=== PATIENT | male | born 1940 | race Hispanic/Latino ===

== ENCOUNTER 2024-08-12 10:50 | Emergency (ER) | payer MEDICARE ==
[2024-08-12 11:13] VITALS: PULSE 84; RESP 17; TEMP 98.1; O2SAT 99
[2024-08-12 12:03] LABS: BASOPHILS % 0.5 % (0.0-1.0); EOSINOPHILS # (AUTO) 0.5 (0.0-0.4); EOSINOPHILS % 8.5 % (0.0-6.0); HEMATOCRIT 23.7 % (38.2-49.6); LYMPHOCYTES # (AUTO) 1.1 (1.0-3.2); LYMPHOCYTES % 19.8 % (18.0-39.1); MEAN CORPUSCULAR HEMOGLOBIN 31.6 pg (28-32); MEAN CORPUSCULAR HGB CONC 33.8 g/dL (31-35); MEAN CORPUSCULAR VOLUME 93.7 fL (81-99); MONOCYTES # (AUTO) 0.4 (0.2-0.8); MONOCYTES % 7.3 % (4.4-11.3); NEUTROPHILS # (AUTO) 3.6 (2.1-6.9); NEUTROPHILS % 63.4 % (38.7-80.0); PLATELET COUNT 322 x10e3/uL (140-360); RED BLOOD COUNT 2.53 x10e6/uL (4.3-5.7); RED CELL DISTRIBUTION WIDTH 12.8 % (11.7-14.4); WHITE BLOOD COUNT 5.65 x10e3/uL (4.8-10.8)
[2024-08-12] MEDS ORDERED: BENZONATATE100 MG PO (12:33)
== END 2024-08-12 13:55 | disposition home or self-care (01) ==
LOC: ER 10:59
DX: R31.9 Hematuria, unspecified (principal); I10 Essential (primary) hypertension; E11.9 Type 2 diabetes mellitus without complications; E78.5 Hyperlipidemia, unspecified; Z85.46 Personal history of malignant neoplasm of prostate
CPT/HCPCS: 36415; 85025; 99283

== ENCOUNTER 2024-10-30 23:09 | Emergency (ER) | payer MEDICARE ==
[~2024-10-30] VITALS: Ht 165.1 cm; Wt 54.4 kg
[~2024-10-30 23:09] MED LIST: BENZONATATE100 MG PO; CEFDINIR300 MG PO; ONDANSETRON ODT4 MG SL
[2024-10-30 23:20] VITALS: PULSE 102; RESP 20; TEMP 98.4
[2024-10-30 23:59] VITALS: BP 121/66; PULSE 97; RESP 16; TEMP 98.4; O2SAT 99
== END 2024-10-31 00:02 | disposition home or self-care (01) ==
LOC: ER 23:13
DX: Z46.6 Encounter for fitting and adjustment of urinary device (principal); I10 Essential (primary) hypertension; E11.9 Type 2 diabetes mellitus without complications; E78.5 Hyperlipidemia, unspecified; Z85.46 Personal history of malignant neoplasm of prostate
CPT/HCPCS: 51700; 99283

== ENCOUNTER 2024-11-05 14:27 | Emergency (ER) | payer MEDICARE ==
[~2024-11-05] VITALS: Ht 165.1 cm; Wt 54.4 kg
[2024-11-05 14:30] VITALS: PULSE 98; RESP 18; TEMP 98.6
[2024-11-05 15:55] VITALS: BP 119/84; PULSE 70; RESP 18; TEMP 98; O2SAT 98
== END 2024-11-05 15:59 | disposition home or self-care (01) ==
LOC: ER 14:50
DX: T83.091A Other mechanical complication of indwelling urethral catheter, initial encounter (principal); N39.0 Urinary tract infection, site not specified; I10 Essential (primary) hypertension; E11.9 Type 2 diabetes mellitus without complications; E78.5 Hyperlipidemia, unspecified; Z85.46 Personal history of malignant neoplasm of prostate
CPT/HCPCS: 87086; 87186; 99283

== ENCOUNTER → 2024-11-16 | Day surgery (SDC) | payer MEDICARE ==
[2024-11-14 16:26] LABS: BASOPHILS % 0.5 % (0.0-1.0); EOSINOPHILS % 8.1 % (0.0-6.0); LYMPHOCYTES % 16.6 % (18.0-39.1); MONOCYTES % 7.4 % (4.4-11.3); NEUTROPHILS % 66.9 % (38.7-80.0); RED CELL DISTRIBUTION WIDTH 14.3 % (11.7-14.4)
[2024-11-14 16:48] LABS: EST GLOMERULAR FILTRATION RATE 60.0 ML/MIN (>=60)
[~2024-11-16] MED LIST changes: +AMIODARONE HCL100 MG PO; +ERLEADA60 MG PO; +FENTANYL CITRATE/PF 100MCG/2 ML INJ ONE; +FEROSUL325 MG PO; +FINASTERIDE5 MG PO; +FLOMAX0.4 MG PO; +LIDOCAINE HCL 2% LOCAL INJ 5 ML SDV VIAL INJ ONE; +LIPITOR20 MG PO; +METFORMIN HCL500 MG PO; +METHENAMINE HIPP1 GM PO; +METOPROLOL SUCC25 MG PO; +MIDODRINE HCL5 MG PO; +ONDANSETRON HCL INJ 2MG/ML 2ML 2 MG/ML VIAL ONE; +PANTOPRAZOLE SO40 MG PO; +PHENYLEPHRINE HCL 1% 10 MG/ML VIAL ONE; +PRESERVISION A1 EAC3; +PROPOFOL IV EMULSION 10 MG/ML 20 ML VIAL ONE; +SODIUM CHLORIDE 0.9% 100 ML ONE; +TOLTERODINE TART4 MG PO; +TRADJENTA5 MG PO; +VITAMIN C500 MG PO
[2024-11-16] MEDS: PIPERACILLIN/TAZOBACTAM 3.375 GM VIAL ONE (05:58)
[2024-11-16] MEDS: GENTAMICIN 80MG/NS 100 ML 200 ML IV ONE (05:58)
[2024-11-16] MEDS: SODIUM CHLORIDE 0.9% 1000ML 1,000 ML ONE (05:58)
[2024-11-16 09:05] VITALS: BP 123/72; PULSE 85; RESP 18; O2SAT 97
== END | disposition home or self-care (01) ==
LOC: OR 05:22
PROVIDERS: ATTEND Urology
DX: R33.8 Other retention of urine (principal); C61 Malignant neoplasm of prostate; N39.0 Urinary tract infection, site not specified; N13.70 Vesicoureteral-reflux, unspecified; N13.30 Unspecified hydronephrosis; N40.0 Benign prostatic hyperplasia without lower urinary tract symptoms; N32.89 Other specified disorders of bladder; D64.9 Anemia, unspecified; E11.9 Type 2 diabetes mellitus without complications; I10 Essential (primary) hypertension; E78.5 Hyperlipidemia, unspecified; M06.9 Rheumatoid arthritis, unspecified; M19.90 Unspecified osteoarthritis, unspecified site; Z01.812 Encounter for preprocedural laboratory examination; Z01.818 Encounter for other preprocedural examination; Z79.890 Hormone replacement therapy; Z79.84 Long term (current) use of oral hypoglycemic drugs; Z79.899 Other long term (current) drug therapy; Z87.891 Personal history of nicotine dependence; Z92.3 Personal history of irradiation
CPT/HCPCS: 36415 ×2; 51040; 52005; 71046; 74420; 80048; 82948; 85025; 87086; 87186; C1758; J1580; J2003; J2371; J2405; J2543; J2704; J3010; J7030; J7050

== ENCOUNTER 2024-11-25 21:30 | Inpatient (IN) | payer MEDICARE ==
[~2024-11-25] VITALS: Ht 165.1 cm; Wt 60.8 kg
[~2024-11-25 21:30] MED LIST changes: -FENTANYL CITRATE/PF 100MCG/2 ML INJ ONE; -LIDOCAINE HCL 2% LOCAL INJ 5 ML SDV VIAL INJ ONE; -MIDODRINE HCL5 MG PO; -ONDANSETRON HCL INJ 2MG/ML 2ML 2 MG/ML VIAL ONE; -PHENYLEPHRINE HCL 1% 10 MG/ML VIAL ONE; -PROPOFOL IV EMULSION 10 MG/ML 20 ML VIAL ONE; -SODIUM CHLORIDE 0.9% 100 ML ONE
[2024-11-25 21:55] VITALS: TEMP 98.2
[2024-11-25 22:40] LABS: BASOPHILS % 0.7 % (0.0-1.0); EOSINOPHILS % 5.8 % (0.0-6.0); LYMPHOCYTES % 38.1 % (18.0-39.1); MONOCYTES % 5.9 % (4.4-11.3); NEUTROPHILS % 48.9 % (38.7-80.0); RED CELL DISTRIBUTION WIDTH 14.9 % (11.7-14.4)
[2024-11-25 22:54] LABS: EST GLOMERULAR FILTRATION RATE 55.0 ML/MIN (>=60)
[2024-11-25 22:55] LABS: INR 0.97
[2024-11-25] MEDS: SODIUM CHLORIDE 0.9% 1000ML 1,000 ML IV STA ×3 (23:33→23:34)
[2024-11-25] MEDS: ACETAMINOPHEN 325 MG TAB PO STA (23:34)
[2024-11-26] VITALS (7 sets, daily range): BP systolic 103–143; BP diastolic 52–71; PULSE 91–122; RESP 17–22; TEMP 97.4–98.9; O2SAT 97–100
[2024-11-26] MEDS ORDERED: IOPAMIDOL 370 MG/ML 100 ML INFUS..BTL INJ ONE (00:51)
[2024-11-26] MEDS ORDERED: ONDANSETRON HCL INJ 2MG/ML 2ML 2 MG/ML VIAL IV PRN (01:30)
[2024-11-26] MEDS ORDERED: LIDOCAINE JELLY 2% 10ML URO-JET ONE (03:02)
[2024-11-26] MEDS: LIDOCAINE JELLY 2% 10ML URO-JET TOP ONE (03:33)
[2024-11-26] MEDS: SODIUM CHLORIDE 0.9% 1000ML 2,000 ML IV STA (04:12)
[2024-11-26] MEDS: SODIUM CHLORIDE 0.9% 1000ML 1,000 ML IV SCH (08:34)
[2024-11-26] MEDS ORDERED: ACETAMINOPHEN 325 MG TAB PO STA (09:46)
[2024-11-26] MEDS ORDERED: DEXAMETHASONE SOD PHOS 10 MG/1 ML VIAL IV ONE (10:00)
[2024-11-26] MEDS ORDERED: DEXTROSE 50% SYRINGE 50 ML IV PRN (10:00)
[2024-11-26] MEDS ORDERED: SODIUM CHLORIDE 0.9% 250ML 250 ML IV ONE (10:00)
[2024-11-26] MEDS: INSULIN LISPRO 100 UNIT/1 ML 3ML VIAL SQ SCH (11:30)
[2024-11-26] MEDS: Morphine 4mg INJECTION 4 MG/ML INJ IV PRN (13:35)
[2024-11-26 17:11] LABS: LEUKOCYTE ESTERASE ,URINE LARGE (NEGATIVE); PROTEIN,URINE DIPSTICK >=300 (NEGATIVE); URINE UROBILINOGEN 1 mg/dL (0.2 - 1)
[2024-11-26] MEDS: DEXAMETHASONE SOD PHOS 10 MG/1 ML VIAL IV ONE (18:01)
[2024-11-26] MEDS: ACETAMINOPHEN 325 MG TAB PO ONE (18:01)
[2024-11-26] MEDS: SODIUM CHLORIDE 0.9% 250ML 250 ML IV ONE (18:01)
[2024-11-26] MEDS: PANTOPRAZOLE SOD 40 MG TABEC PO SCH (18:01)
[2024-11-26] MEDS ORDERED: MIDODRINE HCL5 MG PO (19:49)
[2024-11-27] VITALS (34 sets, daily range): BP systolic 75–159; BP diastolic 49–113; PULSE 89–122; RESP 9–22; TEMP 97.4–98.8; O2SAT 95–100
[2024-11-27] MEDS: FUROSEMIDE INJ 10 MG/ML 2 ML VIAL IV PRN (03:31)
[2024-11-27 08:21] LABS: BASOPHILS % 0.3 % (0.0-1.0); EOSINOPHILS % 0.2 % (0.0-6.0); LYMPHOCYTES % 14.2 % (18.0-39.1); MONOCYTES % 6.8 % (4.4-11.3); NEUTROPHILS % 76.8 % (38.7-80.0); RED CELL DISTRIBUTION WIDTH 16.2 % (11.7-14.4)
[2024-11-27 08:56] LABS: EST GLOMERULAR FILTRATION RATE 25.0 ML/MIN (>=60)
[2024-11-27] MEDS ORDERED: METOPROLOL SUCCINATE 25 MG TAB XL PO SCH (09:00)
[2024-11-27] MEDS: TAMSULOSIN HCL 0.4 MG CAP PO SCH (09:39)
[2024-11-27] MEDS: FINASTERIDE 5 MG TAB PO SCH (09:39)
[2024-11-27] MEDS: AMIODARONE HCL 200 MG TAB PO SCH (09:41)
[2024-11-27] MEDS: METOPROLOL SUCCINATE 25 MG TAB XL PO SCH (09:41)
[2024-11-27] MEDS: TOLTERODINE TARTRATE 4 MG CAPCR PO SCH (11:13)
[2024-11-27] MEDS: SODIUM CHLORIDE 0.9% 250ML 250 ML IV ONE (18:09)
[2024-11-27] MEDS: MUPIROCIN 2% OINT 22 GM TUBE TOP SCH (18:50)
[2024-11-27 18:53] LABS: INR 1.3
[2024-11-27] MEDS ORDERED: MIDODRINE HCL 5 MG TABLET PO PRN (19:15)
[2024-11-28] VITALS (75 sets, daily range): BP systolic 84–138; BP diastolic 41–99; PULSE 76–106; RESP 10–23; TEMP 96.6–98.5; O2SAT 86–100
[2024-11-28 06:43] LABS: BASOPHILS % 0.4 % (0.0-1.0); EOSINOPHILS % 0.2 % (0.0-6.0); LYMPHOCYTES % 7.2 % (18.0-39.1); MONOCYTES % 6.6 % (4.4-11.3); NEUTROPHILS % 84.5 % (38.7-80.0); RED CELL DISTRIBUTION WIDTH 15.3 % (11.7-14.4)
[2024-11-28 07:09] LABS: EST GLOMERULAR FILTRATION RATE 17.0 ML/MIN (>=60)
[2024-11-28 07:24] LABS: PHOSPHORUS 5.3 MG/DL (2.3-4.7)
[2024-11-28 08:04] LABS: BAND NEUTROPHILS % (MANUAL) 1 %; LYMPHOCYTES % (MANUAL) 6 % (19-48); MONOCYTES % (MANUAL) 5 % (3.4-9.0); NEUTROPHILS % (MANUAL) 88 % (40-74); PLATELET ESTIMATE SLIGHTLY DECREASED; PLATELET MORPHOLOGY COMMENT NORMAL
[2024-11-28] MEDS: SODIUM CHLORIDE 0.9% 250ML 250 ML IV ONE ×2 (08:40→20:09)
[2024-11-28] MEDS: SODIUM BICARBONATE 8.4% SYRING 50 ML in SODIUM CHLORIDE 0.45% 1,000 ML IV ONE (08:41)
[2024-11-28] MEDS: HEPARIN SOD/SOD CHLORIDE 1,000 ML ONE (19:26)
[2024-11-28] MEDS: LIDOCAINE HCL 2% LOCAL 20 ML VIAL ONE (19:26)
[2024-11-28] MEDS: IOPAMIDOL 370 MG/ML 100 ML INFUS..BTL INJ ONE (19:27)
[2024-11-28] MEDS: SODIUM CHLORIDE 0.9% 250ML 250 ML ONE (19:27)
[2024-11-29] VITALS (50 sets, daily range): BP systolic 96–128; BP diastolic 50–80; PULSE 35–100; RESP 10–20; TEMP 97.7–98.4; O2SAT 100
[2024-11-29 06:18] LABS: BASOPHILS % 0.2 % (0.0-1.0); EOSINOPHILS % 0.2 % (0.0-6.0); LYMPHOCYTES % 6.3 % (18.0-39.1); MONOCYTES % 6.0 % (4.4-11.3); NEUTROPHILS % 86.0 % (38.7-80.0); RED CELL DISTRIBUTION WIDTH 16.3 % (11.7-14.4)
[2024-11-29 08:29] LABS: EST GLOMERULAR FILTRATION RATE 16.0 ML/MIN (>=60)
[2024-11-29] MEDS: CALCIUM GLUC 1 G/50 ML NACL 50 ML IV SCH ×2 (11:37→18:00)
[2024-11-29] MEDS ORDERED: CALCIUM GLUCONATE 10% INJ 9.3 MEQ in SODIUM CHLORIDE 0.9% 100 ML IV ONE (16:45)
[2024-11-29] MEDS: SODIUM BICARBONATE 650 MG TAB PO SCH (18:38)
[2024-11-29] MEDS: CALCIUM CARBONATE 500 MG CHEWABLE TABS PO SCH (18:38)
[2024-11-29] MEDS: SODIUM BICARBONATE 8.4% INJ 50 ML SYR IV STA (18:49)
[2024-11-29] MEDS: SODIUM BICARBONATE 8.4% SYRING 50 ML ONE (18:52)
[2024-11-30] VITALS (24 sets, daily range): BP systolic 97–127; BP diastolic 53–71; PULSE 85–110; RESP 11–17; TEMP 97.8–99.2; O2SAT 100
[2024-11-30] MEDS: SODIUM BICARBONATE 8.4% SYRING 150 ML in DEXTROSE 5% 1,000 ML IV SCH (01:33)
[2024-11-30 05:46] LABS: EST GLOMERULAR FILTRATION RATE 16.0 ML/MIN (>=60)
[2024-11-30 06:33] LABS: ABG BASE EXCESS -22.0 mmol/L (-2 - 3); ABG HCO3 7 mmol/L (22-26); ABG OXYGEN SATURATION 87.0 % (95-98); ABG PCO2 22 mmHg (35-45); ABG PH 7.14 (7.35-7.45); ABG PO2 67 mmHg (80-105); ABG TCO2 8
[2024-11-30] MEDS: CALCIUM GLUCONATE 10% INJ 9.3 MEQ in SODIUM CHLORIDE 0.9% 100 ML IV ONE (09:19)
[2024-11-30 14:48] LABS: ABG BASE EXCESS -8.0 mmol/L (-2 - 3); ABG HCO3 17 mmol/L (22-26); ABG OXYGEN SATURATION 88.0 % (95-98); ABG PCO2 30 mmHg (35-45); ABG PH 7.37 (7.35-7.45); ABG PO2 56 mmHg (80-105); ABG TCO2 18
[2024-11-30] MEDS: SODIUM BICARBONATE 8.4% VIAL 150 ML in DEXTROSE 5% 1,000 ML IV SCH (16:15)
[2024-11-30 22:09] LABS: EST GLOMERULAR FILTRATION RATE 21.0 ML/MIN (>=60)
[2024-11-30 22:23] LABS: BASOPHILS % 0.2 % (0.0-1.0); EOSINOPHILS % 3.2 % (0.0-6.0); LYMPHOCYTES % 6.4 % (18.0-39.1); MONOCYTES % 6.3 % (4.4-11.3); NEUTROPHILS % 82.8 % (38.7-80.0); RED CELL DISTRIBUTION WIDTH 16.4 % (11.7-14.4)
[2024-12-01] VITALS (19 sets, daily range): BP systolic 89–120; BP diastolic 50–72; PULSE 79–99; RESP 9–15; TEMP 98.3–100.1; O2SAT 95–100
[2024-12-01 05:27] LABS: BASOPHILS % 0.4 % (0.0-1.0); EOSINOPHILS % 2.4 % (0.0-6.0); LYMPHOCYTES % 6.3 % (18.0-39.1); MONOCYTES % 7.6 % (4.4-11.3); NEUTROPHILS % 82.5 % (38.7-80.0); RED CELL DISTRIBUTION WIDTH 16.1 % (11.7-14.4)
[2024-12-01 06:01] LABS: EST GLOMERULAR FILTRATION RATE 24.0 ML/MIN (>=60)
[2024-12-01 06:18] LABS: CALCIUM IONIZED 0.8 mmol/L (1.09-1.30)
[2024-12-01 06:18] LABS: ABG BASE EXCESS 5.0 mmol/L (-2 - 3); ABG HCO3 29 mmol/L (22-26); ABG OXYGEN SATURATION 98.0 % (95-98); ABG PCO2 38 mmHg (35-45); ABG PH 7.48 (7.35-7.45); ABG PO2 94 mmHg (80-105); ABG TCO2 30
[2024-12-01 06:46] LABS: PHOSPHORUS 3.4 MG/DL (2.3-4.7)
[2024-12-01] MEDS: LACTATED RINGER'S 1,000 ML INJ SCH (09:08)
[2024-12-01] MEDS: CALCIUM GLUC 1 G/50 ML NACL 50 ML IV SCH (16:17)
[2024-12-01] MEDS ORDERED: CALCIUM CARBONATE 500 MG CHEWABLE TABS PO SCH (17:00)
[2024-12-02] VITALS (7 sets, daily range): BP systolic 105–133; BP diastolic 50–74; PULSE 85–93; RESP 12–18; TEMP 98.1–99.6; O2SAT 94–100
[2024-12-03] VITALS (8 sets, daily range): BP systolic 103–139; BP diastolic 54–73; PULSE 81–111; RESP 16–19; TEMP 97.5–99; O2SAT 95–100
[2024-12-03] MEDS: B&O 60MG R/S 60 MG SUPP PR PRN (01:52)
[2024-12-03 05:52] LABS: BASOPHILS % 0.3 % (0.0-1.0); EOSINOPHILS % 6.1 % (0.0-6.0); LYMPHOCYTES % 9.3 % (18.0-39.1); MONOCYTES % 12.1 % (4.4-11.3); NEUTROPHILS % 71.8 % (38.7-80.0); RED CELL DISTRIBUTION WIDTH 16.4 % (11.7-14.4)
[2024-12-03 06:07] LABS: EST GLOMERULAR FILTRATION RATE 43.0 ML/MIN (>=60)
[2024-12-03 20:00] LABS: BASOPHILS % 0.3 % (0.0-1.0); EOSINOPHILS % 7.0 % (0.0-6.0); LYMPHOCYTES % 11.6 % (18.0-39.1); MONOCYTES % 15.0 % (4.4-11.3); NEUTROPHILS % 65.5 % (38.7-80.0); RED CELL DISTRIBUTION WIDTH 16.3 % (11.7-14.4)
[2024-12-04] VITALS (16 sets, daily range): BP systolic 55–121; BP diastolic 37–88; PULSE 101–113; RESP 10–39; TEMP 100.2; O2SAT 73–100
[2024-12-04] MEDS: SODIUM CHLORIDE 0.9% 1000ML 0 ML ONE (00:29)
[2024-12-04] MEDS: SODIUM CHLORIDE 0.9% 250ML 250 ML IV ONE (02:08)
[2024-12-04] MEDS: SODIUM CHLORIDE 0.9% 250ML 250 ML ONE (02:09)
[2024-12-04] MEDS: NOREPINEPHRINE 8 MG/D5W 250 ML 250 ML IV SCH (02:10)
[2024-12-04] MEDS: NOREPINEPHRINE 8 MG/D5W 250 ML 250 ML ONE (02:40)
[2024-12-04] MEDS ORDERED: MUPIROCIN 2% OINT 22 GM TUBE TOP SCH (09:00)
== END 2024-12-04 03:15 | disposition expired | DRG 698 ==
LOC: ER 21:39 → ERHOLD 11-26 02:12 → MED/SURG 11-26 06:18 → ICU 11-27 16:29 → MED/SURG2 12-01 17:35 → ICU 12-03 23:56
PROVIDERS: ADMIT Internal Medicine; ATTEND Internal Medicine
PROC: 30233N1 Transfusion of Nonautologous Red Blood Cells into Peripheral Vein, Percutaneous Approach (ICD-10-PCS; 2024-11-26)
PROC: 3E0333Z Introduction of Anti-inflammatory into Peripheral Vein, Percutaneous Approach (ICD-10-PCS; 2024-11-26)
PROC: 30233K1 Transfusion of Nonautologous Frozen Plasma into Peripheral Vein, Percutaneous Approach (ICD-10-PCS; 2024-11-27)
PROC: 02HV33Z Insertion of Infusion Device into Superior Vena Cava, Percutaneous Approach (ICD-10-PCS; 2024-11-27)
PROC: 4A133R1 Monitoring of Arterial Saturation, Peripheral, Percutaneous Approach (ICD-10-PCS; principal; 2024-11-29)
PROC: 5A2204Z Restoration of Cardiac Rhythm, Single (ICD-10-PCS; 2024-12-04)
DX: T83.518A Infection and inflammatory reaction due to other urinary catheter, initial encounter (principal); A41.9 Sepsis, unspecified organism; N17.0 Acute kidney failure with tubular necrosis; R65.21 Severe sepsis with septic shock; C79.51 Secondary malignant neoplasm of bone; R64 Cachexia; E87.20 Acidosis, unspecified; E44.0 Moderate protein-calorie malnutrition; D68.9 Coagulation defect, unspecified; D62 Acute posthemorrhagic anemia; N13.6 Pyonephrosis; R57.8 Other shock; R62.7 Adult failure to thrive; K76.89 Other specified diseases of liver; C61 Malignant neoplasm of prostate; I12.9 Hypertensive chronic kidney disease with stage 1 through stage 4 chronic kidney disease, or unspecified chronic kidney disease; N32.81 Overactive bladder; T83.091A Other mechanical complication of indwelling urethral catheter, initial encounter; R31.0 Gross hematuria; N39.41 Urge incontinence; N18.9 Chronic kidney disease, unspecified; F03.90 Unspecified dementia, unspecified severity, without behavioral disturbance, psychotic disturbance, mood disturbance, and anxiety; R33.9 Retention of urine, unspecified; N32.0 Bladder-neck obstruction; N28.1 Cyst of kidney, acquired; K59.00 Constipation, unspecified; N13.9 Obstructive and reflux uropathy, unspecified; E11.9 Type 2 diabetes mellitus without complications; E78.5 Hyperlipidemia, unspecified; R53.81 Other malaise; M19.90 Unspecified osteoarthritis, unspecified site; Y84.6 Urinary catheterization as the cause of abnormal reaction of the patient, or of later complication, without mention of misadventure at the time of the procedure; Z68.22 Body mass index [BMI] 22.0-22.9, adult; Z79.84 Long term (current) use of oral hypoglycemic drugs; Z87.440 Personal history of urinary (tract) infections; Z92.3 Personal history of irradiation
CPT/HCPCS: 36415; 36569; 37244; 51703; 71045; 74177; 74470; 75726; 75736; 75774; 76770; 80048; 80053; 81001; 82550; 82805; 82948; 83605; 83690; 83735; 84100; 84484; 85014; 85018; 85025; 85610; 85730; 86850; 86900; 86920; 87040; 87071; 87086; 87205; 93005; 94799; 96372; 99252; 99285; C1760; C1769; C1887; C1894; J0612; J1100; J1938; J2003; J2270; J2470; J2543; J7030; J7050; J7070; P9016; P9017; P9034; Q9967